=== PATIENT | female | born 1965 | race African-American/Black ===

== ENCOUNTER → 2017-03-23 | Outpatient (CLI) | payer OTHER ==
[~2017-03-23] MED LIST: ACYCLOVIR PO; ALBUTEROL MININEB NEB; ALBUTEROL17 GM INH; AZITHROMYCIN250 MG PO; BENADRYL25 MG PO; EPIPEN0.3 MG/0.1 IM; MEDROL4 MG/DOSE- PO; ORUDIS75 M1 PO; PEPCID PO; PHENERGAN W/CO120 ML PO; PHENERGAN25 MG PO; PREDNISONE PO; ROBITUSSIN15 MG PO; TYLOX 5/500 CAP1 CAP PO; VITAMIN D50000 UNIT PO; VOLTAREN75 MG PO; WATER PILL; ZITHROMAX PO
--- NOTE | ~2017-03-23 | CR170 ---
[facility] A Service of [facility] & [facility] RADIOLOGY TEXT RESULTS PATIENT: GABRIELA HARRELL LOCATION: [facility] : 67 UNIT #: [id number] AGE: [address]: SCOOBY TODD SEX: F ORDER DR: [id number] [facility] [address] [place], [place] [address] [id number] O MR#: [id number] Acc #: [id number] NAME: GABRIELA HARRELL : 1965 SEX: F STUDY DATE/TIME: 03/23/2017 12:04 UNIT: [facility] ROOM: STUDY DESCRIPTION: CR Knee 2 Views Rt Attending Physician: Scooby Todd Aprn Referring Physician: Scooby Todd Aprn Ordering Physician: Scooby Todd Aprn Primary Care Physician: No Primary Care Physician MEDICAL IMAGING REPORT This report is preliminary unless electronic signature is present EXAM Right knee 03/23/2017 HISTORY 51-year-old female with right knee pain for 3 months. No known injury. COMPARISON None. FINDINGS 2 views of the right knee demonstrate no acute fracture or dislocation. No significant joint effusion. Moderately advanced medial compartment degenerative change and joint space narrowing. Mild patellofemoral degenerative change and lateral compartment degenerative change. Soft tissues are unremarkable. IMPRESSION 1. No acute fracture or dislocation. 2. Tricompartmental arthrosis, detailed above. Dictated by... Sav Odell M.D. THIS IS AN ELECTRONICALLY VERIFIED REPORT Sav Odell M.D. at 03/24/2017 2:30 PM RAMIREZ/emmanuel TD: 03/24/2017 12:12 JOB #: [id number] MEDICAL IMAGING REPORT Page 1 of 1 COPY
--- NOTE | ~2017-03-23 | CR63 ---
[facility] A Service of [facility] RADIOLOGY TEXT RESULTS PATIENT: GABRIELA HARRELL LOCATION: [facility] : 67 UNIT #: [id number] AGE: [address]: SCOOBY TODD SEX: F ORDER DR: [id number] [facility] [address] [place], [place] [address] [id number] O MR#: [id number] Acc #: [id number] NAME: GABRIELA HARRELL : 1965 SEX: F STUDY DATE/TIME: 03/23/2017 12:04 UNIT: [facility] ROOM: STUDY DESCRIPTION: CR Chest 2 View Attending Physician: Scooby Todd Aprn Referring Physician: Scooby Todd Aprn Ordering Physician: Scooby Todd Aprn Primary Care Physician: No Primary Care Physician MEDICAL IMAGING REPORT This report is preliminary unless electronic signature is present EXAM Chest, 03/23/2017, [facility]. HISTORY 51-year-old woman chest pain. COMPARISON 11/04/2010 FINDINGS Two-view chest demonstrates normal cardiac size and configuration. Hilar structures and mediastinal contours are preserved. Bilateral lungs are expanded and clear. Costophrenic angles are preserved and bony thorax unremarkable. Lap-Band again noted. IMPRESSION Negative and stable chest. No acute finding. Previous Lap-Band placement. Dictated by... Lauri Estrada M.D. THIS IS AN ELECTRONICALLY VERIFIED REPORT Lauri Estrada M.D. at 03/23/2017 3:38 PM Oleg TD: 03/23/2017 14:27 JOB #: [id number] MEDICAL IMAGING REPORT Page 1 of 1 COPY
== END | disposition home or self-care (01) ==
LOC: CRAD 11:42
DX: R07.9 Chest pain, unspecified (principal); M17.11 Unilateral primary osteoarthritis, right knee; M25.061 Hemarthrosis, right knee; R00.2 Palpitations
CPT/HCPCS: 71020; 73560